=== PATIENT | male | born 1980 | race Caucasian/White ===

== ENCOUNTER 2023-05-04 19:34 | Emergency (ER) | payer MEDICAID ==
[~2023-05-04] VITALS: Ht 172.7 cm; Wt 70.0 kg
[2023-05-04 19:42] VITALS: TEMP 98.1; O2SAT 99
[2023-05-04] MEDS ORDERED: KETOROLAC 30MG/ML VIAL IV STA (20:48)
[2023-05-04] MEDS ORDERED: ONDANSETRON HCL 4MG/2ML INJ IV STA (20:48)
[2023-05-04] MEDS ORDERED: SODIUM CHLORIDE 0.9% 1,000 ML IV ONE (21:00)
[2023-05-04 21:24] LABS: DIFFERENTIAL COMMENT 1; HEMOGLOBIN. 14.2 g/dL (14.0-18.0); MEAN CORPUSCULAR HEMOGLOBIN 26.5 pg (28.0-32.0); MEAN CORPUSCULAR HGB CONC 32.9 g/dL (31.0-37.0); MEAN CORPUSCULAR VOLUME 80.6 fL (80.0-94.0); MEAN PLATELET VOLUME 8.3 fl (7.4-10.4); PLATELET 225 x1000/uL (130-400); RED BLOOD CELL COUNT 5.34 mill/uL (4.7-6.1); RED CELL DISTRIBUTION WIDTH 14.3 % (11.6-14.6); WHITE BLOOD COUNT 22.9 x1000/uL (4.5-11.0)
[2023-05-04 21:39] LABS: PLATELET ESTIMATE NORMAL
[2023-05-04 21:43] LABS: ALANINE AMINOTRANSFERASE 19 IU/L (10-49); ALBUMIN 4.2 g/dL (3.2-4.8); ASPARTATE AMINOTRANSFERASE 27 IU/L (<34); BILIRUBIN TOTAL 0.4 mg/dL (0.1-1.0); CALCIUM 9.3 mg/dL (8.7-10.4); CARBON DIOXIDE 24 mEq/L (21-32); CHLORIDE 93 mEq/L (98-107); CREATININE 2.3 mg/dL (0.6-1.3); GLUCOSE 132 mg/dL (70-105); POTASSIUM 4.8 mEq/L (3.5-5.1); PROTEIN TOTAL 8.2 g/dL (6.0-8.3); SODIUM 128 mEq/L (136-145); UREA NITROGEN BLOOD 39 mg/dL (9-23)
[2023-05-04 23:02] VITALS: BP 122/84; PULSE 91; RESP 18
[2023-05-05] MEDS ORDERED: TAMS-11 MT (01:47)
[2023-05-05] MEDS ORDERED: TOPUD MT (01:47)
[2023-05-05] MEDS ORDERED: IBUP-1523 MT (01:47)
[2023-05-05 02:48] LABS: CLARITY URINE TURBID (CLEAR); COLOR URINE YELLOW (YELLOW); GLUCOSE URINE NEGATIVE (NEGATIVE); KETONES URINE NEGATIVE (NEGATIVE); LEUKOCYTE ESTERASE URINE 3+ (NEGATIVE); NITRITE URINE NEGATIVE (NEGATIVE); OCCULT BLOOD URINE 2+ (NEGATIVE); PH URINE 5.5 (4.5-8.0); PROTEIN URINE 2+ (NEGATIVE); SPECIFIC GRAVITY URINE 1.016 (1.005-1.030)
[2023-05-05 04:52] LABS: WBC URINE TNTC /hpf (0-2)
[2023-05-05 04:53] LABS: BACTERIA URINE 4+; SQUAMOUS EPITHELIAL CELL URINE NONE SEEN /lpf (RARE/1+)
== END 2023-05-05 01:58 | disposition home or self-care (01) ==
LOC: ER 19:34
DX: R10.9 Unspecified abdominal pain (principal)
CPT/HCPCS: 99285; 74176; 96374; 96361; 96375; 80053; 83690; 85025; 36415; 81003; 87086; J1885; J2405; J7030